=== PATIENT | female | born 2000 | race Caucasian/White ===

== ENCOUNTER 2020-12-09 07:55 | Day surgery (SDC) | payer OTHER ==
[2020-12-09] MEDS ORDERED: Ringers Lactate 1,000 ML IV ONE (08:54)
[2020-12-09] MEDS ORDERED: FENTANYL CITR 100 MCG/2 ML ONE (09:13)
[2020-12-09] MEDS ORDERED: ONDANSETRON 4 MG/2 ML VIAL ONE (09:13)
[2020-12-09] MEDS ORDERED: propofoL 200 MG/20 ML VIAL IV ONE (09:13)
[2020-12-09] MEDS ORDERED: dexAMETHasone 10 MG/ML VIAL ONE (09:13)
[2020-12-09] MEDS ORDERED: LIDOCAINE 2% MPF 5 ML VIAL ONE (09:13)
[2020-12-09] MEDS ORDERED: ROCURONIUM 50 MG/5 ML VIAL IV ONE (09:13)
[2020-12-09] MEDS ORDERED: MIDAZOLAM HCL 2 MG/2 ML INJ ONE (09:13)
[2020-12-09] MEDS ORDERED: BUPIVACAINE 0.5% PF 10 ML VIAL ONE (09:23)
[2020-12-09] MEDS ORDERED: EPINEPHRINE/PF 1 MG/ML AMP ONE ×2 (10:35→11:02)
--- NOTE | 2020-12-09 10:53 | P.OP ---
Pre-Op Diagnosis: Recurrent acute tonsillitis, Chronic tonsillitis Post-Op Diagnosis: Recurrent acute tonsillitis, Chronic tonsillitis Procedure: Tonsillectomy Anesthesia: Other (GA via ETT) Fluids/ Blood products: Other (crystalloid 700ml) Estimated blood loss: Other (10ml) Specimen: Other (bilateral tonsils) Complications: None Implants: None Indication: Patient persistent issues in spite of good medical management. Details of Operation: The patient was brought to the operating room and placed under general anesthesia via endotracheal tube. The head of bed was turned 90 degrees. A Shoulder roll was placed and the neck extended. A head drape was applied. The McIvor mouth gag was placed and suspended from the Walker stand. The oxygen concentrate was confirmed with the rn mental health and was less than forty percent. Weight-based dexamethasone was administered by the rn mental health. The soft palate was palpated and there was no submucous cleft. A red rubber catheter was placed in the nose and secured to retract the soft palate. The tonsils were noted to be small and chronically inflammed. The left tonsil was grasped with a straight Allis clamp. The bovie electocautery was used to incision the mucosa over the anterior pillar and identify the tonsillar capsule. The tonsil was dissected using cautery and blunt dissection until free from soft tissue attachments. A tonsil ball was placed to aid hemostasis. The right tonsil was removed in a similar manner. the left mid fossa had moderate bleeding vessels which were ligated with 4-0 vicryl endoloop. The right tonsil fossa was packed with epi soaked tonsil sponge for 10 minutes to aid in hemostasis. The laryngeal mirror was used to visualize the nasopharynx. The adenoid size was minimal. The adenoids were not removed. Hemostasis was achieved using packing and cautery as needed. Blood loss was minimal. All packing was removed. A Salum sump orogastric tube was used to decompress the stomach. The red rubber catheter was removed and used to suction the nasopharynx and nasal cavity. The mouth gag was removed; there was no evidence of injury to the lips, teeth or tongue. The mandible was mobile. Disposition: The patient was then awakened from anesthesia and taken to the recovery room in stable condition.
[2020-12-09] MEDS: MEPERIDINE HCL 25 MG/ML SYR ONE ×2 (11:03→11:10)
[2020-12-09] MEDS: MORPHINE 4 MG/ML SYR ONE ×4 (11:15→11:45)
[2020-12-09 12:16] VITALS: TEMP 98
[2020-12-09] MEDS ORDERED: ACETAMINOPHEN 325 MG TABLET ONE (12:59)
[2020-12-09 13:05] VITALS: BP 108/64; O2SAT 97
== END 2020-12-09 12:55 | disposition home or self-care (01) ==
LOC: OR 07:55
PROVIDERS: ATTEND Otolaryngology
PROC: 0CTPXZZ Resection of Tonsils, External Approach (ICD-10-PCS; principal; 2020-12-09 09:45)
DX: J03.01 Acute recurrent streptococcal tonsillitis (principal); J35.01 Chronic tonsillitis; J30.9 Allergic rhinitis, unspecified; Z20.822 Contact with and (suspected) exposure to COVID-19
CPT/HCPCS: 81025; 88304; 42826; U0002; J2704; J0171 ×2; J2250; J3010; J1100; J2175; J7120; J2405